=== PATIENT | male | born 1970 | race African-American/Black ===

== ENCOUNTER 2024-02-02 09:27 | Emergency (ER) | payer OTHER ==
[~2024-02-02] VITALS: Ht 185.4 cm; Wt 113.4 kg
[2024-02-02 09:39] VITALS: BP_SYST 137; PULSE 75; RESP 18; TEMP 97.1; O2SAT 96
[2024-02-02 10:18] LABS: BASOPHILS % (AUTO) 0.3 % (0.0-2.0); EOSINOPHILS # (AUTO) 0.1 K/uL (0.0-0.4); HEMATOCRIT 44.9 % (36-54); HEMOGLOBIN 15.2 g/dL (14.0-18.0); LYMPHOCYTES # (AUTO) 2.3 K/uL (1.0-5.5); LYMPHOCYTES % (AUTO) 24.8 % (20.5-51.5); MEAN CORPUSCULAR HEMOGLOBIN 31 pg (27-31); MEAN CORPUSCULAR HGB CONC 34 % (32-36); MEAN CORPUSCULAR VOLUME 91 fL (79.0-98.0); MONOCYTES # (AUTO) 0.6 K/uL (0.0-1.0); MONOCYTES % (AUTO) 6.9 % (1.7-9.3); NEUTROPHILS # (AUTO) 6.3 K/uL (1.8-7.7); PLATELET COUNT (AUTO) 136 K/uL (130-430); RED BLOOD CELL COUNT(AUTO) 4.92 MIL/uL (4.2-6.2); RED CELL DISTRIBUTION WIDTH 14.2 % (9.0-15.0); WHITE BLOOD COUNT (AUTO) 9.4 K/uL (4.8-10.8)
[2024-02-02 10:23] LABS: INFLUENZA TYPE A Negative (NEGATIVE); INFLUENZA TYPE B NEGATIVE (NEGATIVE)
[2024-02-02 10:29] LABS: ANION GAP 10 (5-15); CALCIUM 8.5 mg/dL (8.4-11.0); CARBON DIOXIDE 25 mmol/L (23-29); CHLORIDE 107 mmol/L (98-107); GFR AFRICAN AMERICAN 68 mL/min (>90); GLUCOSE 121 mg/dL (74-106); POTASSIUM 3.9 mmol/L (3.5-5.1); SODIUM SERUM 142 mmol/L (136-145); UREA NITROGEN, BLOOD 10 mg/dL (8-21)
[2024-02-02 10:33] LABS: GFR NON AFRICAN-AMERICAN 56 mL/min (>90)
[2024-02-02] MEDS ORDERED: BROM118S61 PO (11:00)
[2024-02-02 11:11] VITALS: BP_SYST 134; PULSE 78; RESP 22; TEMP 97.6; O2SAT 96
== END 2024-02-02 11:10 | disposition home or self-care (01) ==
LOC: SED 09:27
DX: J20.8 Acute bronchitis due to other specified organisms (principal); R55 Syncope and collapse; Z20.822 Contact with and (suspected) exposure to COVID-19; R42 Dizziness and giddiness; Z79.899 Other long term (current) drug therapy
CPT/HCPCS: 36415; 71045; 80048; 83880; 84484; 85025; 93005; 99285